=== PATIENT | female | born 1955 | race Caucasian/White ===

== ENCOUNTER 2020-02-19 13:33 | Emergency (ER) | payer MEDICAID ==
[~2020-02-19] VITALS: Ht 162.6 cm; Wt 66.0 kg
[2020-02-19] MEDS ORDERED: MORPHINE SULFATE 10 MG/ML CPJ IM ONE (14:15)
[2020-02-19] MEDS ORDERED: SODIUM CHLORIDE 0.9% 1,000 ML IV ONE (15:00)
[2020-02-19] MEDS ORDERED: PROPOFOL 200MG/20ML VIAL IV ONE ×2 (15:00→16:15)
[2020-02-19] MEDS ORDERED: KETAMINE HCL 50 MG/ML 10ML IV ONE ×2 (15:00→16:15)
[2020-02-19 19:56] VITALS: BP 138/60
== END 2020-02-19 19:56 | disposition home or self-care (01) ==
LOC: ER 13:33
DX: S43.014A Anterior dislocation of right humerus, initial encounter (principal); Z98.890 Other specified postprocedural states; W01.0XXA Fall on same level from slipping, tripping and stumbling without subsequent striking against object, initial encounter; Y93.89 Activity, other specified; Y92.512 Supermarket, store or market as the place of occurrence of the external cause
CPT/HCPCS: 23650; 73030; 93005; 96372; 96374; 96375; 96376; 99152; 99285; J2270; J2704; J3490; L3670